=== PATIENT | female | born 1980 | race African-American/Black ===

== ENCOUNTER 2017-09-06 14:23 | Emergency (ER) | payer MEDICAID ==
[~2017-09-06] VITALS: Ht 160 cm; Wt 86.2 kg
[2017-09-06] MEDS ORDERED: Tylenol #3 tab (300mg/30mg) ORAL ONE (15:00)
[2017-09-06] MEDS ORDERED: ACETAMINOPHEN-1 EAC1 ORAL (15:06)
--- NOTE | 2017-09-06 15:07 | Emergency Room Report ---
History of Present Illness General Chief Complaint: Toothache Source: Patient Present Illness HPI 36-year-old female patient presents ER complaining of pain secondary to dental infection. Reports was previously seen by her dentist today and prescribed Motrin and amoxicillin for treatment. Reports Motrin is not working, requesting further pain relief. Denies other acute symptoms. Denies fever, chest pain or shortness of breath. reports able to eat. Denies neck pain. reports took three 600mg Motrin pills earlier today following dental appointment. Allergies: Coded Allergies: No Known Allergies (Unverified , 09/06/17) Patient History Past Medical History: see triage record Last Menstrual Period: now Now: No Reviewed Nursing Documentation: PMH: Agreed; PSxH: Agreed Nursing Documentation-PMH Past Medical History: No Stated History Review of Systems All Other Systems: negative except mentioned in HPI Physical Exam Vital Signs Date Time Temp Pulse Resp B/P (MAP) Pulse Ox O2 Delivery O2 Flow Rate FiO2 09/06/17 14:36 98.4 96 18 163/96 98 Room Air 98.4 Sp02 EP Interpretation: reviewed, normal General Appearance: well appearing, no apparent distress, alert, GCS 15, non- toxic Head: normocephalic, atraumatic Eyes: bilateral eye normal inspection, bilateral eye PERRL ENT: hearing grossly normal, normal pharynx, no angioedema, normal voice, uvula midline, moist mucus membranes, other - right upper gum: erythema, edema, TTP; multiple caries; no trismus Neck: full range of motion Respiratory: lungs clear, normal breath sounds, no rhonchi, no respiratory distress, no accessory muscle use, no wheezing, speaking full sentences Cardiovascular #1: regular rate, rhythm, no edema Musculoskeletal: back normal, digits/nails normal, gait/station normal, normal range of motion, non-tender Neurologic: alert, oriented x3, responsive, motor strength/tone normal, sensory intact Psychiatric: mood/affect normal Skin: no rash Medical Decision Making PA Attestation Dr. Martinez is my supervising Physician whom patient management has been discussed with. Diagnostic Impression: Primary Impression: Toothache ER Course Pt. presents to the ED c/o dental infection. Ddx considered but are not limited to cellulitis, abscess, dental caries, gingivitis. Does not require imaging at this time. Vital signs: are WNL, pt. is afebrile ED INTERVENTIONS: CURES reports, no pain medication refills this month. Tylenol 3 for pain in the ER. Nontoxic appearing, speaking full sentences, no active draining, mild edema, no trismus or vision changes. patient currently has amoxicillin, take antibiotics previously prescribed to her. Iinstructed to continue taking full course of antibiotics and follow up with dentist. instructed to discuss pain treatment at that time. informed patient not to take more than recommended dose of medication, discuss further pain treatment with dentist and PCP area Reports feeling better following administration of medication ER. DISCHARGE: -Rx provided for Tylenol #3. CURES reviewed. At this time pt. is stable for d/c to home. Patient is resting comfortably, in no acute distress, nontoxic appearing, talking and smiling without difficulty. Will provide printed patient care instructions and any necessary prescriptions. Care plan and follow up instructions have been discussed with the patient prior to discharge. Patient instructed to follow-up with primary care provider in 2 - 3 days. Followup with dentist. Patient questions asked and answered. Patient reports understanding and agreement to treatment plan. ER precautions given. Patient instructed to return to ER immediately for any new or worsening of symptoms including but not limited to fever, worsening of pain symptoms, worsening of erythema, red streaking. - Please note that this Emergency Department Report was dictated using [employer] technology software, occasionally this can lead to erroneous entry secondary to interpretation by the dictation equipment. Last Vital Signs Date Time Temp Pulse Resp B/P (MAP) Pulse Ox O2 Delivery O2 Flow Rate FiO2 09/06/17 15:00 98.4 09/06/17 14:36 96 18 163/96 98 Room Air Disposition: HOME, SELF-CARE Condition: Stable Scripts Acetaminophen With Codeine (T#3) (TYLENOL #3 TAB*) Y Tab 1 TAB ORAL Q6HR PRN for For Pain, #10 TAB Prov: Lebron Giraldo 09/06/17 Patient Instructions: Dental Pain Additional Instructions: Followup with primary care provider in 3 -5 days. Follow-up with dentist in 1 week. Take medications as directed. Take medications as instructed. Side effects of drowsiness, do not take prior to drinking, driving, operating heavy machinery. Do not take higher than recommended dosage of pain medication. Patient questions asked and answered. ER precautions given, patient instructed to return to ER immediately for any new or worsening of symptoms. Lebron Giraldo Sep 06, 2017 15:07
[2017-09-06 15:40] VITALS: BP 136/84
== END 2017-09-06 16:30 | disposition home or self-care (01) ==
LOC: EMR 16:02
DX: K02.9 Dental caries, unspecified (principal)
CPT/HCPCS: 99283